=== PATIENT | female | born 1955 | race African-American/Black ===

== ENCOUNTER 2018-03-05 11:39 | Emergency (ER) | payer OTHER ==
[2018-03-05 11:58] VITALS: BMI 42.0
--- NOTE | 2018-03-05 12:05 | PDOC ---
History of Present Illness - General Chief Complaint: Lightheaded Stated Complaint: LIGHTHEADED/NAUSEA - History of Present Illness Initial Comments: The patient is a 62F w/ a history of HTN and T2DM who presents for evaluation for 2d of non-positional dizziness. She describes it as room spinning to the left. Denies LOC or falls. Denies ever having had this before. Endorses associated OCONNELL that she took an ASA for with minimal relief. Reports feeling more malaise today but attributes it to not eating. Denies fevers/chills, chest pain, SOB, abdominal pain, N/V/C/D. 03/05/18 12:13 Past History - Past Medical History Allergies/Adverse Reactions: Allergies Allergy/AdvReac Type Severity Reaction Status Date / Time codeine AdvReac Intermediate Vomiting Verified 03/05/18 11:58 Home Medications: Ambulatory Orders Aspirin 81 mg PO DAILY 03/05/18 Atenolol [Tenormin] 100 mg PO DAILY 03/05/18 Brimonidine Tartrate [Alphagan 0.2% -] 1 drop OU BID 03/05/18 Losartan/Hydrochlorothiazide [Losartan-Hctz 100-12.5 mg Tab] 1 each PO DAILY 07/18 Meclizine HCl [Antivert -] 25 mg PO TID 7 Days #21 tablet 03/05/18 Rosuvastatin [Crestor -] 5 mg PO ASDIR 03/05/18 Semaglutide [Ozempic] 1 mg SQ WEEKLY 03/05/18 Spironolactone 25 mg PO BID 03/05/18 Travoprost [Travatan Z] 5 ml OP HS 03/05/18 Verapamil HCl [Verapamil ER] 240 mg PO DAILY 03/05/18 COPD: No Diabetes: Yes HTN: Yes Hypercholesterolemia: Yes Psychiatric Problems: Yes (depression) - Surgical History Orthopedic Surgery: Yes (patellar fracture) - Suicide/Smoking/Psychosocial Hx Smoking History: Never smoked Have you smoked in the past 12 months: No Information on smoking cessation initiated: No Hx Alcohol Use: No Drug/Substance Use Hx: No Substance Use Type: None Review of Systems - Review of Systems Able to Perform ROS?: Yes Comments:: GENERAL/CONSTITUTIONAL: No fever or chills. No weakness HEAD, EYES, EARS, NOSE AND THROAT: Denies blurry vision, No ear pain or discharge. No sore throat CARDIOVASCULAR: No chest pain or shortness of breath RESPIRATORY: Denies cough, hemoptysis GASTROINTESTINAL: No nausea, vomiting, diarrhea or constipation GENITOURINARY: No dysuria, frequency, or change in urination MUSCULOSKELETAL: Denies any new MSK pain SKIN: No rash NEUROLOGIC: Denies loss of consciousness, or change in strength/sensation ENDOCRINE: No increased thirst. No abnormal weight change HEMATOLOGIC/LYMPHATIC: No anemia, easy bleeding, or history of blood clots ALLERGIC/IMMUNOLOGIC: No hives or skin allergy 03/05/18 12:18 Is the patient limited Nepali proficient: No *Physical Exam - Vital Signs Last Vital Signs Temp Pulse Resp BP Pulse Ox 98.6 F 83 17 116/65 100 03/05/18 11:54 03/05/18 11:54 03/05/18 11:54 03/05/18 11:54 03/05/18 11:54 - Physical Exam Comments: GENERAL: Awake, alert, and fully oriented, in no acute distress HEAD: No signs of trauma, normocephalic, atraumatic EYES: PERRLA, EOMI, sclera anicteric, conjunctiva clear ENT: Hearing grossly normal, nares patent, oropharynx clear without exudates. Moist mucosa LUNGS: No distress, speaks full sentences, clear to auscultation bilaterally HEART: Regular rate and rhythm, normal S1 and S2, no murmurs appreciated, peripheral pulses normal and equal bilaterally ABDOMEN: Soft, nontender, normoactive bowel sounds. No guarding, no rebound EXTREMITIES : Normal inspection, Normal range of motion, no edema. No clubbing or cyanosis NEUROLOGICAL: Cranial nerves II through XII grossly intact. Normal speech, no focal sensorimotor deficits 03/05/18 12:19 Moderate Sedation - Procedure Monitoring Vital Signs: Procedure Monitoring Vital Signs Temperature 98.6 F 03/05/18 11:54 Pulse Rate 83 03/05/18 11:54 Respiratory Rate 17 03/05/18 11:54 Blood Pressure 116/65 03/05/18 11:54 O2 Sat by Pulse Oximetry (%) 100 03/05/18 11:54 ED Treatment Course - LABORATORY CBC & Chemistry Diagram: 03/05/18 13:13 03/05/18 13:13 Medical Decision Making - Medical Decision Making The patient is a 62F who presents for 2d of vertiginous dizziness BG 150 03/05/18 12:19 Lytes wnl No leukocytosis No anemia CT head w/o evidence of stroke Symptoms improved s/p meclizine IVF for mild dehydration Plan for D/C w/ PCP and Neurology f/u Rx for meclizine Plan discussed w/ patient who is in agreement and verbalized understanding Dispo: Home 03/05/18 20:08 *DC/Admit/Observation/Transfer Diagnosis at time of Disposition: Vertigo - Discharge Dispostion Disposition: HOME Condition at time of disposition: Stable Decision to Admit order: No - Prescriptions Prescriptions: Meclizine HCl [Antivert -] 25 mg PO TID 7 Days #21 tablet - Referrals Referrals: Herbert Blum MD [Primary Care Provider] - Kevin Romeo MD [Staff Physician] - - Patient Instructions Printed Discharge Instructions: DI for Vertigo Additional Instructions: You were seen in the Emergency Department today for vertigo. Review the handout provided at discharge. A prescription was sent to your pharmacy for Meclizine. Take as directed. Follow up with your primary care provided. - Post Discharge Activity
[2018-03-05] MEDS ORDERED: MECLIZINE HCL 25 MG TABLET (FP) PO ONE (13:01)
[2018-03-05] MEDS ORDERED: MECLIZINE HCL 25 MG TABLET (FP) ONE (13:03)
[2018-03-05 13:44] LABS: HEMATOCRIT 36.4 % (32.4-45.2); HEMOGLOBIN 12.6 GM/dL (10.7-15.3); MCH 32.7 pg (25.7-33.7); MCHC 34.6 g/dl (32.0-36.0); MEAN CELL VOLUME 94.4 fl (80-96); MEAN PLT VOLUME 7.6 fl (7.5-11.1); PLATELET COUNT 261 K/MM3 (134-434); RBC 3.86 M/mm3 (3.60-5.2); RDW 12.8 % (11.6-15.6); WHITE BLOOD COUNT 6.8 K/mm3 (4.0-10.0)
[2018-03-05 13:47] LABS: URINE APPEARANCE CLEAR; URINE BILIRUBIN NEGATIVE (<2.0 mg/dL); URINE COLOR LTYELLOW; URINE GLUCOSE (UA) NEGATIVE (NEGATIVE); URINE KETONE NEGATIVE (NEGATIVE); URINE LEUK ESTERASE 1+ (NEGATIVE); URINE NITRITE NEGATIVE (NEGATIVE); URINE PROTEIN NEGATIVE (NEGATIVE); URINE UROBILINOGEN NEGATIVE mg/dL (0.2-1.0)
[2018-03-05 13:49] LABS: EPI CELLS RARE /HPF (FEW); URINE BACTERIA RARE /hpf (NONE SEEN)
[2018-03-05 14:28] LABS: ALBUMIN 3.6 g/dl (3.4-5.0); ALK PHOS 64 U/L (45-117); ANION GAP 6 MMOL/L (8-16); BILIRUBIN,TOTAL 0.3 mg/dL (0.2-1); BLOOD UREA NITROGEN 19 mg/dL (7-18); CALCIUM 9.1 mg/dL (8.5-10.1); CHLORIDE 95 mmol/L (98-107); CO2 32 mmol/L (21-32); CREATININE 0.9 mg/dL (0.55-1.3); GLUCOSE,RANDOM 134 mg/dL (74-106); POTASSIUM 3.8 mmol/L (3.5-5.1); SGOT/AST 21 U/L (15-37); SGPT/ALT 25 U/L (13-61); SODIUM 133 mmol/L (136-145); TOT PROT 7.6 g/dl (6.4-8.2)
[2018-03-05] MEDS ORDERED: SODIUM CHLORIDE 1,000 ML IV ONE (15:02)
--- NOTE | 2018-03-05 15:08 | PDOC ---
Attending Attestation - Resident Resident Name: AntoniaDanyel tineo - ED Attending Attestation I have performed the following: I have examined & evaluated the patient, The case was reviewed & discussed with the resident, I agree w/resident's findings & plan - HPI HPI: 03/05/18 15:02 62-year-old female with history of hypertension, diabetes presents with vertigo for 2 days. Patient awoke from sleep yesterday with positional vertigo, worse with turning her head to the right and with standing or bending rebound. The symptoms last for seconds and then resolve. Reports mild intermittent headache and nausea with the symptoms, no vision change/speech change/vomiting/focal weakness. Patient reports unsteady gait when she first stands up but then resolves, no persisting gait unsteadiness. No history of vertigo or cva. - Physicial Exam PE: 03/05/18 15:07 vss, well appearing perrl, eomi. vertical nystagmus on rightward gaze, va otherwise intact with normal coronel no audible carotid bruits s1s2 rrr, ctab abd soft neuro nonfocal: reproducible danelle-hallpike, 5/5 motor x4, fnf normal, gait normal - Medical Decision Making 03/05/18 15:08 62-year-old female with hypertension and diabetes presents with positional vertigo since yesterday, no other associated neurological deficits. No head injury, neurologically intact here, vital signs are normal. Despite risk factors for central etiology of vertigo, the bleeding and positional nature of vertigo along with normal neurological exam suggest peripheral etiology. Check labs Check CT head Trial of vertigo Reassess and disposition accordingly Heart Score/ECG Review #1 ECG reviewed & interpreted by me at: 11:49 General ECG Interpretation: Sinus Rhythm, Normal Rate (80), Normal Intervals ( qtc 426), No acute ischemic changes NIH Stroke Scale - Last Known Well Date/Time & Onset Date Last Known Well: 03/03/18 - Initial Evaluation Level of consciousness: Alert Ask patient the month and their age: Answers both correctly Ask patient to open & close eyes; make fist and let go: Obeys both correctly Best gaze (horizontal eye movement): Normal Visual field testing: No visual field loss Facial paresis (Show teeth/raise eyebrows/close eyes tight): Normal symmetrical movement Motor Function: Left Arm: Normal Motor Function: Right Arm: Normal (extends arm 90 (or 45) degrees for 10 seconds without drift Motor Function: Left Leg: Normal (extends leg 30 degrees for 5 seconds without drift) Motor Function: Right Leg: Normal (extends leg 30 degrees for 5 seconds without drift) Limb Ataxia: No ataxia Sensory(Use pinprick test arms,legs,trunk,face/side to side): Normal Best language (Describe picture, name items, read sentences): No Aphasia Dysarthria (read several words): Normal articulation Extinction and Inattention: No abnormality - Total Score NIH Stroke Scale Score: 0
[2018-03-05 17:25] VITALS: BP 120/65; PULSE 67; TEMP 98.2
--- NOTE | 2018-03-06 13:03 | EKG ---
Test Reason : Blood Pressure : / mmHG Vent. Rate : 080 BPM Atrial Rate : 080 BPM P-R Int : 172 ms QRS Dur : 082 ms QT Int : 370 ms P-R-T Axes : 058 -28 054 degrees QTc Int : 426 ms POOR DATA QUALITY, INTERPRETATION MAY BE ADVERSELY AFFECTED NORMAL SINUS RHYTHM NORMAL ECG WHEN COMPARED WITH ECG OF 23-AUG-2015 08:36, NO SIGNIFICANT CHANGE WAS FOUND Confirmed by RENU LING MD ([id number]) on 03/06/2018 1:03:18 PM Referred By: Confirmed By:RENU LING MD
== END 2018-03-05 17:23 | disposition home or self-care (01) ==
LOC: JER 11:39
PROC: 3E0337Z Introduction of Electrolytic and Water Balance Substance into Peripheral Vein, Percutaneous Approach (ICD-10-PCS; principal; 2018-03-05)
DX: R42 Dizziness and giddiness (principal)
CPT/HCPCS: 36415; 70450-TC; 80053; 81003; 81015; 82962; 85027; 93005; 93010; 99283-25; J7030